=== PATIENT | male | born 1955 | race Caucasian/White ===

== ENCOUNTER 2018-12-28 19:14 | Inpatient (IN) | payer BC, OTHER ==
[~2018-12-28] VITALS: Ht 190.5 cm; Wt 95.2 kg
[~2018-12-28 19:14] MED LIST: FURO40TA4 PO
[2018-12-28] MEDS ORDERED: ALBUTEROL SULF 2.5 MG/0.5ML(0.5%) NEB SOLN NEB STA (19:43)
[2018-12-28] MEDS ORDERED: IPRATROPIUM BROM 0.5 MG/2.5ML INH SOL NEB ONE (19:45)
[2018-12-28 20:27] LABS: Basophils # (auto) 0.1 uL; Basophils % (auto) 1.2 % (0.0-2.0); Eosinophils # (auto) 0.2 uL; Eosinophils % (auto) 3.3 % (0.0-7.0); Hematocrit 47.8 % (41.0-53.0); Hemoglobin 15.9 g/dL (13.5-17.5); Mean Corpuscular Hemoglobin 30.4 pg (28.0-32.0); Mean Corpuscular Hgb Conc. 33.2 g/dL (32.0-36.0); Mean Corpuscular Volume 91.6 fL (80.0-100.0); Monocytes # (auto) 0.6 uL; Monocytes % (auto) 10.5 % (0.0-12.0); Neutrophils # (auto) 3.2 uL; Nucleated Red Blood Cells % 0.1 %; Platelet Count (auto) 147 10^3/uL (140-450); Red Blood Cells 5.22 10^6/uL (4.5-5.90); Red Cell Distribution Width 15.1 % (11.8-14.3); White Blood Cell 6.1 10^3/uL (4.4-10.8)
[2018-12-28 20:42] LABS: Urine Bacteria NONE SEEN /hpf (None Seen); Urine Blood Negative /uL (Negative); Urine Specific Gravity 1.019 (1.001-1.035); Urine WBC 1 /hpf (0 - 3)
[2018-12-28 20:44] LABS: INR 2.93 (0.9-1.15); Partial Thromboplastin Time 34.7 sec (23.64-32.05)
[2018-12-28 20:45] LABS: Alanine Aminotransferase 52 U/L (16-61); Albumin 3.3 g/dL (3.4-5.0); Anion Gap 10 (5-15); Aspartate Aminotransferase 40 U/L (15-37); BUN/Creatinine Ratio 21.3; Blood Urea Nitrogen 34 mg/dL (7-18); Calcium 8.4 mg/dL (8.5-10.1); Carbon Dioxide 23 mmol/L (21-32); Chloride 102 mmol/L (98-107); GFR African American 57 mL/min; GFR Non-African American 47 mL/min; Glucose 122 mg/dL (74-106); Potassium 4.2 mmol/L (3.5-5.1); Sodium 135 mmol/L (136-145)
[2018-12-28 20:49] LABS: Alkaline Phosphatase 93 U/L (45-117); Bilirubin, Total 2.4 mg/dL (0.2-1.0)
[2018-12-28] MEDS ORDERED: DIGOXIN (250MCG/ML) 2 ML AMPULE IV ONE (21:30)
[2018-12-28] MEDS ORDERED: FUROSEMIDE 20 MG/2 ML VIAL IV ONE (21:30)
[2018-12-28] MEDS ORDERED: DILTIAZEM HCL 25 MG/5 ML VIAL IV ONE (23:15)
[2018-12-29] VITALS (7 sets, daily range): BP systolic 93–107; BP diastolic 52–76
[2018-12-29] MEDS ORDERED: ALBUTEROL SULF 2.5 MG/0.5ML(0.5%) NEB SOLN NEB PRN (01:00)
[2018-12-29] MEDS ORDERED: IPRATROPIUM BROM 0.5 MG/2.5ML INH SOL NEB PRN (01:00)
[2018-12-29] MEDS ORDERED: ACETAMINOPHEN 500 MG TAB PO PRN (01:00)
[2018-12-29] MEDS ORDERED: ONDANSETRON HCL 4 MG/2 ML VIAL IV PRN (01:00)
[2018-12-29] MEDS ORDERED: TEMAZEPAM 15 MG CAP PO PRN (01:00)
[2018-12-29] MEDS ORDERED: WARF5TAB71 PO (02:52)
[2018-12-29] MEDS: ALBUTEROL SULF 2.5 MG/0.5ML(0.5%) NEB SOLN NEB SCH ×3 (06:26→19:28)
[2018-12-29] MEDS: IPRATROPIUM BROM 0.5 MG/2.5ML INH SOL NEB SCH ×3 (06:27→19:28)
[2018-12-29 07:05] LABS: Basophils # (auto) 0.1 uL; Basophils % (auto) 1.4 % (0.0-2.0); Eosinophils # (auto) 0.2 uL; Hematocrit 44.1 % (41.0-53.0); Hemoglobin 14.5 g/dL (13.5-17.5); Lymphocytes # (auto) 1.7 uL; Lymphocytes % (auto) 32.6 % (10.0-50.0); Mean Corpuscular Hemoglobin 30.5 pg (28.0-32.0); Mean Corpuscular Hgb Conc. 32.9 g/dL (32.0-36.0); Mean Corpuscular Volume 92.5 fL (80.0-100.0); Monocytes # (auto) 0.5 uL; Monocytes % (auto) 9.9 % (0.0-12.0); Neutrophils # (auto) 2.8 uL; Neutrophils % (auto) 53.1 % (37.0-80.0); Nucleated Red Blood Cells % 0.1 %; Platelet Count (auto) 122 10^3/uL (140-450); Red Blood Cells 4.77 10^6/uL (4.5-5.90); White Blood Cell 5.2 10^3/uL (4.4-10.8)
[2018-12-29 07:23] LABS: Calcium 8.5 mg/dL (8.5-10.1); Potassium 3.6 mmol/L (3.5-5.1)
[2018-12-29 07:25] LABS: BUN/Creatinine Ratio 23.3
[2018-12-29 07:36] LABS: INR 2.96 (0.9-1.15)
[2018-12-29] MEDS: LEVOTHYROXINE SODIUM 25 MCG TAB PO SCH (09:42)
[2018-12-29] MEDS: PANTOPRAZOLE 40 MG TAB PO SCH (09:42)
[2018-12-29] MEDS: FUROSEMIDE 40 MG/4 ML VIAL IV SCH ×2 (09:43→09:49)
[2018-12-29] MEDS ORDERED: PANTOPRAZOLE 40 MG TAB PO SCH (10:00)
[2018-12-29] MEDS ORDERED: WARFARIN SODIUM 2.5 MG TAB PO ONE (17:00)
[2018-12-29] MEDS: CARVEDILOL 3.125 MG TAB PO SCH (21:39)
[2018-12-30 04:44] LABS: Basophils # (auto) 0.1 uL; Basophils % (auto) 1.2 % (0.0-2.0); Eosinophils # (auto) 0.1 uL; Eosinophils % (auto) 2.9 % (0.0-7.0); Hematocrit 44.5 % (41.0-53.0); Hemoglobin 14.9 g/dL (13.5-17.5); Lymphocytes # (auto) 1.8 uL; Lymphocytes % (auto) 35.7 % (10.0-50.0); Mean Corpuscular Hemoglobin 30.5 pg (28.0-32.0); Mean Corpuscular Hgb Conc. 33.4 g/dL (32.0-36.0); Mean Corpuscular Volume 91.2 fL (80.0-100.0); Monocytes # (auto) 0.5 uL; Monocytes % (auto) 9.4 % (0.0-12.0); Neutrophils # (auto) 2.6 uL; Neutrophils % (auto) 50.8 % (37.0-80.0); Nucleated Red Blood Cells % 0.1 %; Platelet Count (auto) 131 10^3/uL (140-450); Red Blood Cells 4.87 10^6/uL (4.5-5.90); Red Cell Distribution Width 14.9 % (11.8-14.3); White Blood Cell 5.2 10^3/uL (4.4-10.8)
[2018-12-30 05:00] VITALS: BP 89/73
[2018-12-30 05:00] LABS: INR 2.7 (0.9-1.15)
[2018-12-30] MEDS: LEVOTHYROXINE SODIUM 25 MCG TAB PO SCH (06:30)
[2018-12-30] MEDS: IPRATROPIUM BROM 0.5 MG/2.5ML INH SOL NEB SCH ×3 (06:30→19:31)
[2018-12-30] MEDS: ALBUTEROL SULF 2.5 MG/0.5ML(0.5%) NEB SOLN NEB SCH ×3 (06:30→19:31)
[2018-12-30 08:20] VITALS: BP 104/67
[2018-12-30 08:44] VITALS: BP 104/67
[2018-12-30] MEDS ORDERED: LEVOTHYROXINE SODIUM 25 MCG TAB PO ONE (09:15)
[2018-12-30] MEDS: PANTOPRAZOLE 40 MG TAB PO SCH (09:46)
[2018-12-30] MEDS: ASPirin 81 mg TAB PO SCH (09:47)
[2018-12-30] MEDS: DIGOXIN 0.125 MG TAB PO SCH (09:47)
[2018-12-30] MEDS: METOLAZONE 5 MG TAB PO SCH (09:47)
[2018-12-30] MEDS: FUROSEMIDE 40 MG/4 ML VIAL IV SCH (09:48)
[2018-12-30] MEDS: CARVEDILOL 3.125 MG TAB PO SCH ×2 (09:49→22:00)
[2018-12-30 13:00] VITALS: BP 96/75
[2018-12-30] MEDS ORDERED: WARFARIN SODIUM 2.5 MG TAB PO ONE (17:00)
[2018-12-30 17:03] VITALS: BP 99/68
[2018-12-30 22:00] VITALS: BP 101/62
[2018-12-31] VITALS (8 sets, daily range): BP systolic 83–105; BP diastolic 52–87
[2018-12-31] MEDS: ALBUTEROL SULF 2.5 MG/0.5ML(0.5%) NEB SOLN NEB SCH ×3 (06:00→18:00)
[2018-12-31] MEDS: IPRATROPIUM BROM 0.5 MG/2.5ML INH SOL NEB SCH ×3 (06:00→18:00)
[2018-12-31] MEDS: LEVOTHYROXINE SODIUM 25 MCG TAB PO SCH (06:31)
[2018-12-31 07:28] LABS: Basophils # (auto) 0.1 uL; Eosinophils # (auto) 0.2 uL; Eosinophils % (auto) 2.8 % (0.0-7.0); Hemoglobin 16.7 g/dL (13.5-17.5); Lymphocytes % (auto) 34.5 % (10.0-50.0); Mean Corpuscular Hemoglobin 30.8 pg (28.0-32.0); Mean Corpuscular Hgb Conc. 33.4 g/dL (32.0-36.0); Mean Corpuscular Volume 92.2 fL (80.0-100.0); Monocytes # (auto) 0.6 uL; Monocytes % (auto) 10.2 % (0.0-12.0); Neutrophils # (auto) 2.9 uL; Neutrophils % (auto) 51.5 % (37.0-80.0); Nucleated Red Blood Cells % 0.1 %; Platelet Count (auto) 142 10^3/uL (140-450); Red Blood Cells 5.43 10^6/uL (4.5-5.90); Red Cell Distribution Width 15.1 % (11.8-14.3); White Blood Cell 5.7 10^3/uL (4.4-10.8)
[2018-12-31 07:30] LABS: INR 2.42 (0.9-1.15)
[2018-12-31] MEDS: CARVEDILOL 3.125 MG TAB PO SCH ×2 (10:00→22:00)
[2018-12-31] MEDS: METOLAZONE 5 MG TAB PO SCH (10:00)
[2018-12-31] MEDS: FUROSEMIDE 40 MG/4 ML VIAL IV SCH (10:00)
[2018-12-31] MEDS: SACUBITRIL-VALSARTAN 24mg/26mg TAB PO SCH ×2 (10:00→21:49)
[2018-12-31] MEDS: METOPROLOL TARTRATE 25 MG TAB PO SCH ×2 (10:00→21:49)
[2018-12-31] MEDS: DIGOXIN 0.125 MG TAB PO SCH (11:35)
[2018-12-31] MEDS: ASPirin 81 mg TAB PO SCH (11:35)
[2018-12-31] MEDS: PANTOPRAZOLE 40 MG TAB PO SCH (11:35)
[2018-12-31] MEDS ORDERED: WARFARIN SODIUM 2 MG TAB PO ONE (17:00)
[2019-01-01] VITALS (8 sets, daily range): BP systolic 81–99; BP diastolic 52–67
[2019-01-01] MEDS: ALBUTEROL SULF 2.5 MG/0.5ML(0.5%) NEB SOLN NEB SCH ×3 (05:43→18:00)
[2019-01-01] MEDS: IPRATROPIUM BROM 0.5 MG/2.5ML INH SOL NEB SCH ×3 (05:43→18:00)
[2019-01-01] MEDS: LEVOTHYROXINE SODIUM 25 MCG TAB PO SCH (05:54)
[2019-01-01 07:14] LABS: INR 2.33 (0.9-1.15)
[2019-01-01] MEDS: FUROSEMIDE 40 MG/4 ML VIAL IV SCH (09:55)
[2019-01-01] MEDS: CARVEDILOL 3.125 MG TAB PO SCH ×2 (09:56→21:50)
[2019-01-01] MEDS: METOPROLOL TARTRATE 25 MG TAB PO SCH ×2 (09:57→21:50)
[2019-01-01] MEDS: METOLAZONE 5 MG TAB PO SCH (10:00)
[2019-01-01] MEDS: SACUBITRIL-VALSARTAN 24mg/26mg TAB PO SCH ×2 (10:35→21:47)
[2019-01-01] MEDS: DIGOXIN 0.125 MG TAB PO SCH (10:35)
[2019-01-01] MEDS: ASPirin 81 mg TAB PO SCH (10:36)
[2019-01-01] MEDS: PANTOPRAZOLE 40 MG TAB PO SCH (10:36)
[2019-01-01] MEDS ORDERED: LIDOCAINE 2%HCL (LOCAL ANESTH.) INJ 20ML MDV ONE (13:02)
[2019-01-01] MEDS ORDERED: IOHEXOL 350 MG/ML 100ML IJ ONE (13:02)
[2019-01-01] MEDS ORDERED: MIDAZOLAM HCL 1MG/1ML-2 ML VIAL ONE (13:08)
[2019-01-01] MEDS ORDERED: ANGIOMAX 250 MG VIAL IV ONE (13:08)
[2019-01-01] MEDS ORDERED: SODIUM CHL 0.9% 0 ML ONE (13:08)
[2019-01-01] MEDS ORDERED: VERAPAMIL 2.5MG/ML INJ 2ML VIAL IV ONE (13:09)
[2019-01-01] MEDS ORDERED: fentaNYL CITRATE 100 MCG/2 ML VL ONE (13:11)
[2019-01-02] VITALS (7 sets, daily range): BP systolic 90–101; BP diastolic 53–69
[2019-01-02] MEDS: ALBUTEROL SULF 2.5 MG/0.5ML(0.5%) NEB SOLN NEB SCH ×3 (06:00→19:35)
[2019-01-02] MEDS: IPRATROPIUM BROM 0.5 MG/2.5ML INH SOL NEB SCH ×3 (06:00→19:35)
[2019-01-02] MEDS: LEVOTHYROXINE SODIUM 25 MCG TAB PO SCH (07:02)
[2019-01-02] MEDS: METOPROLOL TARTRATE 25 MG TAB PO SCH ×2 (10:00→22:00)
[2019-01-02] MEDS: CARVEDILOL 3.125 MG TAB PO SCH ×2 (10:00→22:00)
[2019-01-02] MEDS: SACUBITRIL-VALSARTAN 24mg/26mg TAB PO SCH ×2 (10:22→22:33)
[2019-01-02] MEDS: FUROSEMIDE 40 MG/4 ML VIAL IV SCH (10:22)
[2019-01-02] MEDS: DIGOXIN 0.125 MG TAB PO SCH (10:22)
[2019-01-02] MEDS: PANTOPRAZOLE 40 MG TAB PO SCH (10:23)
[2019-01-02] MEDS: METOLAZONE 5 MG TAB PO SCH (10:23)
[2019-01-03] VITALS (8 sets, daily range): BP systolic 88–99; BP diastolic 50–69
[2019-01-03 06:40] LABS: Basophils # (auto) 0.1 uL; Basophils % (auto) 1.3 % (0.0-2.0); Eosinophils # (auto) 0.2 uL; Eosinophils % (auto) 3.3 % (0.0-7.0); Hematocrit 48.8 % (41.0-53.0); Hemoglobin 16.3 g/dL (13.5-17.5); Lymphocytes # (auto) 1.6 uL; Lymphocytes % (auto) 33.4 % (10.0-50.0); Mean Corpuscular Hemoglobin 30.5 pg (28.0-32.0); Mean Corpuscular Hgb Conc. 33.4 g/dL (32.0-36.0); Mean Corpuscular Volume 91.4 fL (80.0-100.0); Monocytes # (auto) 0.5 uL; Monocytes % (auto) 9.8 % (0.0-12.0); Neutrophils # (auto) 2.5 uL; Neutrophils % (auto) 52.2 % (37.0-80.0); Nucleated Red Blood Cells % 0.1 %; Platelet Count (auto) 146 10^3/uL (140-450); Red Blood Cells 5.34 10^6/uL (4.5-5.90); Red Cell Distribution Width 14.8 % (11.8-14.3); White Blood Cell 4.8 10^3/uL (4.4-10.8)
[2019-01-03] MEDS: LEVOTHYROXINE SODIUM 25 MCG TAB PO SCH (06:40)
[2019-01-03 06:42] LABS: INR 1.76 (0.9-1.15); Partial Thromboplastin Time 31.1 sec (23.64-32.05)
[2019-01-03 06:57] LABS: BUN/Creatinine Ratio 16.9; Calcium 8.6 mg/dL (8.5-10.1); Potassium 4.1 mmol/L (3.5-5.1)
[2019-01-03] MEDS: ALBUTEROL SULF 2.5 MG/0.5ML(0.5%) NEB SOLN NEB SCH ×3 (07:12→19:20)
[2019-01-03] MEDS: IPRATROPIUM BROM 0.5 MG/2.5ML INH SOL NEB SCH ×3 (07:12→19:19)
[2019-01-03] MEDS: ASPirin 81 mg TAB PO SCH (09:59)
[2019-01-03] MEDS: METOLAZONE 5 MG TAB PO SCH (10:00)
[2019-01-03] MEDS: DIGOXIN 0.125 MG TAB PO SCH (10:00)
[2019-01-03] MEDS: SACUBITRIL-VALSARTAN 24mg/26mg TAB PO SCH ×2 (10:00→21:40)
[2019-01-03] MEDS: PANTOPRAZOLE 40 MG TAB PO SCH (10:00)
[2019-01-03] MEDS: CARVEDILOL 3.125 MG TAB PO SCH ×2 (10:00→22:00)
[2019-01-03] MEDS: FUROSEMIDE 40 MG/4 ML VIAL IV SCH (10:01)
[2019-01-03] MEDS: METOPROLOL TARTRATE 25 MG TAB PO SCH ×2 (10:01→22:00)
[2019-01-04 05:21] VITALS: BP 81/59
[2019-01-04] MEDS: IPRATROPIUM BROM 0.5 MG/2.5ML INH SOL NEB SCH ×3 (06:00→19:14)
[2019-01-04] MEDS: ALBUTEROL SULF 2.5 MG/0.5ML(0.5%) NEB SOLN NEB SCH ×3 (06:00→19:14)
[2019-01-04] MEDS: LEVOTHYROXINE SODIUM 25 MCG TAB PO SCH (06:37)
[2019-01-04 08:00] VITALS: BP 87/63
[2019-01-04 08:15] VITALS: BP 87/63
[2019-01-04] MEDS: ASPirin 81 mg TAB PO SCH (09:38)
[2019-01-04] MEDS: DIGOXIN 0.125 MG TAB PO SCH (09:38)
[2019-01-04] MEDS: PANTOPRAZOLE 40 MG TAB PO SCH (09:39)
[2019-01-04] MEDS: SACUBITRIL-VALSARTAN 24mg/26mg TAB PO SCH (09:39)
[2019-01-04] MEDS: FUROSEMIDE 40 MG/4 ML VIAL IV SCH (09:40)
[2019-01-04] MEDS: METOLAZONE 5 MG TAB PO SCH (09:44)
[2019-01-04] MEDS: CARVEDILOL 3.125 MG TAB PO SCH (09:44)
[2019-01-04] MEDS: METOPROLOL TARTRATE 25 MG TAB PO SCH (09:44)
[2019-01-04 12:00] VITALS: BP 86/57
[2019-01-04 17:00] VITALS: BP 90/62
== END 2019-01-04 21:40 | disposition home or self-care (01) | DRG 286 ==
LOC: ER 19:17 → TELE 19:18 → TELE-EAST 12-29 01:56
PROVIDERS: ADMIT Nurse Practitioner Family; ATTEND Family Medicine
PROC: 4A023N7 Measurement of Cardiac Sampling and Pressure, Left Heart, Percutaneous Approach (ICD-10-PCS; principal; 2019-01-01)
PROC: B2111ZZ Fluoroscopy of Multiple Coronary Arteries using Low Osmolar Contrast (ICD-10-PCS; 2019-01-01)
PROC: B2151ZZ Fluoroscopy of Left Heart using Low Osmolar Contrast (ICD-10-PCS; 2019-01-01)
DX: I13.0 Hypertensive heart and chronic kidney disease with heart failure and stage 1 through stage 4 chronic kidney disease, or unspecified chronic kidney disease (principal); N17.0 Acute kidney failure with tubular necrosis; I50.43 Acute on chronic combined systolic (congestive) and diastolic (congestive) heart failure; J44.1 Chronic obstructive pulmonary disease with (acute) exacerbation; I42.0 Dilated cardiomyopathy; I48.91 Unspecified atrial fibrillation; E03.9 Hypothyroidism, unspecified; I34.0 Nonrheumatic mitral (valve) insufficiency; Z79.82 Long term (current) use of aspirin; Z79.899 Other long term (current) drug therapy; Z91.19 Patient's noncompliance with other medical treatment and regimen; N18.2 Chronic kidney disease, stage 2 (mild)
CPT/HCPCS: 36415; 71045; 80048; 80053; 80162; 81001; 83880; 84443; 84484; 85025; 85379; 85610; 85730; 93005; 93306; 93458; 94640; 96374; 96375; 99152; G0378; J2250

== ENCOUNTER → 2019-01-24 | Outpatient (CLI) | payer OTHER ==
[~2019-01-24] MED LIST changes: +WARF5TAB71 PO
== END | disposition home or self-care (01) ==
LOC: Rad HDHVI 14:40
PROVIDERS: ATTEND Internal Medicine Cardiovascular Disease
DX: I08.8 Other rheumatic multiple valve diseases (principal); I48.91 Unspecified atrial fibrillation; I50.810 Right heart failure, unspecified
CPT/HCPCS: 93306

== ENCOUNTER → 2019-02-07 | Outpatient (CLI) | payer OTHER ==
--- NOTE | 2019-02-07 15:40 | NUR ---
CHF PT ARRIVED AT THE CHF CLINIC FOR BEGINNING CHF TREATMENT AND IMPLEMENTATION OF CARE . VSS STABLE HR IRREGULAR 50-80 EKG AND INR 4.4. A/O X4 0 DISTRESS. LABS DRAWN
--- NOTE | 2019-02-07 16:40 | NUR ---
NEW MED REC DONE WITH PT. PT. GIVEN ADDITIONAL WRITTEN LIT. ON CHF, A-FIB, AND LOW SODIUM REGIMEN. PT. STATES HE HAS NOT BEEN COMPLIANT WEARING HIS LIFEVEST PER INSTRUCTION FROM . PT. HAS NOT BEEN COMPLIANT ON HIS CARDIAC MEDS, DUE TO INTERMITTANT LOW BLOOD PRESSURE OR INCREASED HR WITH COMPENSATORY HYPOTENSION. PT. EDUCATED EVERY ON EVERY MED HE IS TAKING WITH NEW EVENING MEDS CHANGED FOR WARFARIN AND DIGOXIN. PT INSTRUCTED TO GET PILL BOX FOR AM AND PM MEDS., AND GIVEN A WRITTEN MED REC ON EACH MED. PT. STATES HE HAS BEEN TAKING HIS B/P, PULSE, AND WT. DAILY, AND WILL SEND ME INFO ON THIS. PT. GIVEN SBP PARAMETERS OF 96, AND INSTRUCTED ON HOLDING DIGOXIN IF PULSE LESS THAN 60 BPM. PT. ALSO INSTRUCTED TO PURCHASE A PORTABLE PULSE OX SEE TRENDS OF HR WITH HISTORY OF A-FIB. PT. REPEATS A MUCH BETTER UNDERSTANDING OF MEDS AND DZ PROCESS..PT. ALSO GIVEN A COPY OF HIS EKG FOR RECORDS.
[2019-02-07 17:03] VITALS: BP 103/65
--- NOTE | 2019-02-07 17:15 | NUR ---
Discharge Instructions See e-MAR for any mediations given with this visit. Patient education given on disease process. Patient verbalized understanding. Previous labs reviewed. Patient discharged in stable condition with after care instructions and follow up appointment. PT. T0 RTC MONDAY AT 3:30 FOR FOLLOWUP APPT. WITH DR. QUINTANA AND GIVEN INSTRUCTIONS TO WEAR LIFEVEST AND MAY CALL THIS RN PRN.
[2019-02-07 17:20] LABS: Basophils # (auto) 0 uL; Eosinophils # (auto) 0.3 uL; Eosinophils % (auto) 5.2 % (0.0-7.0); Hematocrit 47.4 % (41.0-53.0); Hemoglobin 15.9 g/dL (13.5-17.5); Lymphocytes # (auto) 1.2 uL; Mean Corpuscular Hemoglobin 30.3 pg (28.0-32.0); Mean Corpuscular Hgb Conc. 33.4 g/dL (32.0-36.0); Mean Corpuscular Volume 90.7 fL (80.0-100.0); Monocytes # (auto) 0.6 uL; Monocytes % (auto) 11.1 % (0.0-12.0); Neutrophils # (auto) 3.1 uL; Neutrophils % (auto) 59.7 % (37.0-80.0); Platelet Count (auto) 135 10^3/uL (140-450); Red Blood Cells 5.23 10^6/uL (4.5-5.90); Red Cell Distribution Width 17.5 % (11.8-14.3); White Blood Cell 5.1 10^3/uL (4.4-10.8)
[2019-02-07 17:38] LABS: Albumin 3.5 g/dL (3.4-5.0); BUN/Creatinine Ratio 22.9; Calcium 8.6 mg/dL (8.5-10.1); Magnesium 2.3 mg/dL (1.6-2.6); Potassium 4.1 mmol/L (3.5-5.1)
[2019-02-07 17:41] LABS: Bilirubin, Total 1.3 mg/dL (0.2-1.0); Total Protein 7.3 g/dL (6.4-8.2)
== END | disposition home or self-care (01) ==
LOC: CHF HDHVI 15:37
PROVIDERS: ATTEND Internal Medicine Cardiovascular Disease
DX: I11.0 Hypertensive heart disease with heart failure (principal); I50.9 Heart failure, unspecified; E11.9 Type 2 diabetes mellitus without complications; E83.40 Disorders of magnesium metabolism, unspecified; K90.9 Intestinal malabsorption, unspecified; D64.9 Anemia, unspecified
CPT/HCPCS: 36415; 80053; 80162; 82306; 83036; 83735; 83880; 84443; 85025; 93005; G0463

== ENCOUNTER → 2019-03-04 | Outpatient (CLI) | payer OTHER ==
[~2019-03-04] MED LIST changes: +DIGO0.2570 PO; +LEVO25TA6 PO; +METO25TA5 PO; +SACU1TAB PO; +WARF2.5T PO
--- NOTE | 2019-03-04 16:15 | NUR ---
PT. TO CHF CLINIC WITH , [facility]. PT. WAS SCHEDULED FOR APPT. WITH DR. QUINTANA WHO IS NOW REQUESTING TO SEE HIM IN CLINIC TO REVIEW MED REC AND COMPLIANCE WITH MEDS AND LIFE VEST. PT. WAS CONTACTED BY ROHAN GOMEZ RN FROM [facility] PT. RELATIONS YESTERDAY. SHE CALLED THIS RN FOR UPDATE AND WAS GIVEN PT STATUS ON MEDS. PT. WAS PREVIOUSLY NON COMPLIANT WITH LIFE VEST DUE TO CONCERNS ABOUT HIS A-FIB SETTING OFF AICD. FURTHER EDUCATION GIVEN TO PT. AND SPOUSE ON IMPORTANCE OF WEARING VEST FOR PROTECTION. A-FIB HAS BEEN IN A CONTROLLED VENT. RESPONSE. PT. BROUGHT HIS B/P AND WT. RECORDS IN SHOWING MUCH BETTER BLOOD PRESSURE SUPPORT WITH ENTRESTO 24/26MG BID, AND CARVEDILOL 6.25MG BID, AND METOPROLOL 12.5MG BID. INR DONE WITH RESULTS 1.7 5MG Q HS. RECENT DIG. LEVEL WAS 1.0. DR. QUINTANA NOTIFIED OF MED REC AND PT. STATUS.
--- NOTE | 2019-03-04 16:30 | NUR ---
Dr. Braden Martin at bedside Dr. Martin at bedside for exam. Additional orders received and carried out.
--- NOTE | 2019-03-04 16:40 | NUR ---
NO CHANGES IN COUMADIN PER DR. QUINTANA. EKG DONE WITH RESULTS TO DR. QUINTANA SHOWING A-FIB WITH CONTROLLED VENT RESPONSE AT 67. CARDIODYNAMICS DONE WITH RESULTS REVIEWED WITH PT., SPOUSE, AND MD.
[2019-03-04 17:02] VITALS: BP 97/64
--- NOTE | 2019-03-04 17:05 | NUR ---
Discharge Instructions See e-MAR for any mediations given with this visit. Patient education given on disease process. Patient verbalized understanding. Previous labs reviewed. Patient discharged in stable condition with after care instructions and follow up appointment. PT. TO RTC THIS MONDAY AT 0830 FOR CXR AND ADDITIONAL LABS PER MD ORDER. ALL QUESTIONS ANSWERED TO PT. AND WHO STATED SHE FEELS MORE REASSURED ABOUT PT. CONDITION.
== END | disposition home or self-care (01) ==
LOC: CHF HDHVI 16:30
PROVIDERS: ATTEND Internal Medicine Cardiovascular Disease
DX: I48.91 Unspecified atrial fibrillation (principal); I25.10 Atherosclerotic heart disease of native coronary artery without angina pectoris; I11.0 Hypertensive heart disease with heart failure; I50.9 Heart failure, unspecified; R94.31 Abnormal electrocardiogram [ECG] [EKG]
CPT/HCPCS: 85610; 93005; 93701; G0463

== ENCOUNTER → 2019-03-08 | Outpatient (CLI) | payer OTHER ==
[2019-03-08 12:11] LABS: Potassium 4.5 mmol/L (3.5-5.1)
== END | disposition home or self-care (01) ==
LOC: CHF HDHVI 08:15
PROVIDERS: ATTEND Internal Medicine Cardiovascular Disease
DX: I48.91 Unspecified atrial fibrillation (principal); E87.6 Hypokalemia; R94.4 Abnormal results of kidney function studies; R06.02 Shortness of breath; I51.7 Cardiomegaly; Z79.899 Other long term (current) drug therapy
CPT/HCPCS: 36415; 71046; 80061; 80162; 82565; 84132; 84520

== ENCOUNTER → 2019-03-15 | Outpatient (CLI) | payer OTHER ==
[2019-03-15 08:00] VITALS: BP 121/59
[2019-03-15 09:29] VITALS: BP 94/57
--- NOTE | 2019-03-15 09:30 | NUR ---
IN TO CLINIC FOR CHF FOLLOWUP. NOTED TO HAVE BRADYCARDIA WITH HEART RATE 45-65. 12 LEAD EKG DONE AND REVIEWED BY SHERRON HENRIQUEZ. PREVIOUS LABS REVIEWED. ADDITIONAL LABS DRAWN AND SENT. INR CHECKED AND CLINIC PROVIDER CONSULTED AND ORDERS RECIEVED. PT TO TAKE 1.5 TABLETS OF 2.5 WARFARIN DOSE X TONIGHT ONLY, THEN RESUME 2.5 MG DAILY THEREAFTER. REPEAT LABS INCLUDING INR ON RTC IN 1 WEEK. TEACHING DONE BY SHERRON HENRIQUEZ.
[2019-03-15 09:51] LABS: Potassium 4.2 mmol/L (3.5-5.1)
--- NOTE | 2019-03-15 10:30 | NUR ---
Discharge Instructions See e-MAR for any mediations given with this visit. Patient education given on disease process. Patient verbalized understanding. Previous labs reviewed. Patient discharged in stable condition with after care instructions and follow up appointment. PT. INSTRUCTED TO HOLD TONLYNDA'S DIGOXIN PER DR. QUINTANA'S ORDER. THIS RN WILL CALL PT WITH LAB RESULTS AND FOLLOW UP APPT.
--- NOTE | 2019-03-15 16:30 | NUR ---
ALL LABS REVIEWED WITH DR. QUINTANA. PT. CALLED WITH INSTRUCTIONS TO COME TO SEE DR. QUINTANA MONDAY AT 11;00 FOR FOLLOW UP APPT. PT. IS STILL WEARING LIFEVEST WITH C/O INTERMITTANT LIGHT HEADEDNESS. PT. IS KEEPING A VERY GOOD LOG ON HIS BLOOD PRESSURES AND DAILY WEIGHTS WHICH HAVE BEEN REVIEWED BY THIS RN WITH PT AND MD. PT. IS NOT ABLE TO UPTITRATE ON ANY CHF MEDS AT THIS TIME.
== END | disposition home or self-care (01) ==
LOC: CHF HDHVI 08:01
PROVIDERS: ATTEND Internal Medicine Cardiovascular Disease
DX: I48.91 Unspecified atrial fibrillation (principal); I50.9 Heart failure, unspecified; Z79.899 Other long term (current) drug therapy; Z79.01 Long term (current) use of anticoagulants
CPT/HCPCS: 36415; 80162; 82565; 83880; 84132; 84520; 85610; 93005; G0463

== ENCOUNTER → 2019-05-20 | Outpatient (CLI) | payer OTHER ==
[~2019-05-20] MED LIST changes: +DIGO0.25 PO; -DIGO0.2570 PO; -WARF5TAB71 PO
[2019-05-20 11:53] LABS: Eosinophils # (auto) 0.1 uL; Hemoglobin 17.1 g/dL (13.5-17.5); Neutrophils # (auto) 2.7 uL; Nucleated Red Blood Cells % 0.1 %; White Blood Cell 4.5 10^3/uL (4.4-10.8)
[2019-05-20 11:56] LABS: Basophils # (auto) 0.1 uL; Basophils % (auto) 1.4 % (0.0-2.0); Eosinophils % (auto) 1.7 % (0.0-7.0); Hematocrit 50.2 % (41.0-53.0); Lymphocytes # (auto) 1.1 uL; Lymphocytes % (auto) 24.1 % (10.0-50.0); Mean Corpuscular Hemoglobin 33.8 pg (28.0-32.0); Mean Corpuscular Volume 99.4 fL (80.0-100.0); Monocytes # (auto) 0.6 uL; Monocytes % (auto) 13.1 % (0.0-12.0); Neutrophils % (auto) 59.7 % (37.0-80.0); Platelet Count (auto) 141 10^3/uL (140-450); Red Blood Cells 5.05 10^6/uL (4.5-5.90); Red Cell Distribution Width 13.5 % (11.8-14.3)
[2019-05-20 12:01] LABS: Urine Blood Negative /uL (Negative); Urine Specific Gravity 1.021 (1.001-1.035)
[2019-05-20 12:08] LABS: Potassium 4.4 mmol/L (3.5-5.1)
[2019-05-20 12:10] LABS: INR 1.21 (0.9-1.15); Partial Thromboplastin Time 29.1 sec (23.64-32.05)
[2019-05-20 12:17] LABS: Albumin 3.7 g/dL (3.4-5.0); BUN/Creatinine Ratio 15.8; Bilirubin, Total 1.6 mg/dL (0.2-1.0); Calcium 9.1 mg/dL (8.5-10.1); Total Protein 7.5 g/dL (6.4-8.2)
[2019-05-21 16:50] LABS: Free T4 (Free Thyroxine) 1.18 ng/dL (0.89-1.76); Prostate Specific Antigen 1.46 ng/mL (0.0-4.0)
== END | disposition home or self-care (01) ==
LOC: LAB 09:54
PROVIDERS: ATTEND Internal Medicine Cardiovascular Disease
DX: Z00.00 Encounter for general adult medical examination without abnormal findings (principal); E03.9 Hypothyroidism, unspecified; K90.9 Intestinal malabsorption, unspecified; C61 Malignant neoplasm of prostate; E29.1 Testicular hypofunction; N39.0 Urinary tract infection, site not specified; D51.9 Vitamin B12 deficiency anemia, unspecified; R79.1 Abnormal coagulation profile; Z79.899 Other long term (current) drug therapy
CPT/HCPCS: 36415; 80053; 80061; 81003; 82306; 82607; 83036; 84153; 84403; 84439; 84443; 85025; 85610; 85730

== ENCOUNTER → 2020-02-18 | Outpatient (CLI) | payer MEDICAID ==
[2020-02-18 15:59] LABS: Calcium 8.9 mg/dL (8.5-10.1); Magnesium 2.5 mg/dL (1.6-2.6); Potassium 4.2 mmol/L (3.5-5.1)
[2020-02-18 16:02] LABS: BUN/Creatinine Ratio 21.1
[2020-02-18 16:34] LABS: Basophils # (auto) 0.1 10 ^3/uL (0-0.2); Basophils % (auto) 1.1 % (0.0-2.0); Eosinophils # (auto) 0.1 10 ^3/uL (0-0.8); Eosinophils % (auto) 1.6 % (0.0-7.0); Hematocrit 45.3 % (41.0-53.0); Hemoglobin 15.3 g/dL (13.5-17.5); Lymphocytes # (auto) 0.9 10 ^3/uL (0.4-5.4); Lymphocytes % (auto) 18.3 % (10.0-50.0); Mean Corpuscular Hemoglobin 31.7 pg (28.0-32.0); Mean Corpuscular Hgb Conc. 33.7 g/dL (32.0-36.0); Mean Corpuscular Volume 94.1 fL (80.0-100.0); Monocytes # (auto) 0.4 10 ^3/uL (0-1.3); Monocytes % (auto) 7.9 % (0.0-12.0); Neutrophils # (auto) 3.5 10 ^3/uL (1.6-8.6); Neutrophils % (auto) 71.1 % (37.0-80.0); Nucleated Red Blood Cells % 0.2 %; Platelet Count (auto) 232 10^3/uL (140-450); Red Blood Cells 4.81 10^6/uL (4.5-5.90); Red Cell Distribution Width 15.4 % (11.8-14.3); White Blood Cell 4.9 10^3/uL (4.4-10.8)
== END | disposition home or self-care (01) ==
LOC: LAB 11:51
PROVIDERS: ATTEND Internal Medicine Cardiovascular Disease
DX: I50.43 Acute on chronic combined systolic (congestive) and diastolic (congestive) heart failure (principal); D64.9 Anemia, unspecified; E83.40 Disorders of magnesium metabolism, unspecified
CPT/HCPCS: 36415; 80048; 83735; 85025

== ENCOUNTER → 2020-02-25 | Outpatient (CLI) | payer MEDICAID ==
[2020-02-25 12:15] LABS: INR 1.21 (0.9-1.15); Partial Thromboplastin Time 29.9 sec (23.0-31.2)
== END | disposition home or self-care (01) ==
LOC: LAB 09:18
PROVIDERS: ATTEND Internal Medicine Cardiovascular Disease
DX: R79.1 Abnormal coagulation profile (principal)
CPT/HCPCS: 36415; 85610; 85730

== ENCOUNTER → 2020-03-03 | Outpatient (CLI) | payer MEDICAID | END | disposition home or self-care (01) | LOC: Rad HDHVI 15:03 | PROVIDERS: ATTEND Internal Medicine Cardiovascular Disease | DX: I25.10 Atherosclerotic heart disease of native coronary artery without angina pectoris (principal); Z95.810 Presence of automatic (implantable) cardiac defibrillator | CPT/HCPCS: 93306 ==

== ENCOUNTER → 2020-03-05 | Outpatient (CLI) | payer MEDICAID | END | disposition home or self-care (01) | LOC: LAB 07:56 | PROVIDERS: ATTEND Internal Medicine Cardiovascular Disease | DX: R79.1 Abnormal coagulation profile (principal) | CPT/HCPCS: 85610 ==